=== PATIENT | male | born 1935 | race Caucasian/White ===

== ENCOUNTER 2018-05-01 15:57 | Observation (INO) ==
[2018-05-01] MEDS ORDERED: DIPH/TET/ACEL PERT BOOSTER VACCINE 0.5 ML VIAL IM ONE (20:15)
[2018-05-01] MEDS ORDERED: SODIUM CHLORIDE 0.9% 500 ML IV STA (20:16)
[2018-05-01 20:37] LABS: Basophils # 0.1 10*3/uL (0.0-0.2); Basophils % 0.8 % (0.0-0.8); Eosinophils # 0.1 10*3/uL (0.0-0.87); Eosinophils % 0.5 % (0.00-10.9); Hematocrit 36.9 VOL% (42.0-52.0); Hemoglobin 12.4 GM/DL (14.0-18.0); Immature Granulocytes % 0.7 %; Immature Granulocytes Absolute 0.07 #; Lymphocytes # 3.7 10*3/uL (1.4-4.0); Lymphocytes % 39.1 % (21.2-54.2); Mean Corpuscular HGB Conc 33.6 GM/DL (32-36); Mean Corpuscular Hemoglobin 32 PG (27-34); Mean Corpuscular Volume 96.1 FL (87-102); Mean Platelet Volume 9.1 FL (9.6-12.0); Monocytes # 0.8 10*3/uL (0.11-0.8); Monocytes % 8.5 % (1.7-12.7); Neutrophils # 4.8 10*3/uL (1.4-7.4); Neutrophils % 50.4 % (38.7-73.9); Platelet Count 187 T/CUMM (130-400); Red Blood Count 3.84 MC/CUMM (3.8-5.5); Red Cell Distribution Width 12.9 % (9.3-17.3); White Blood Count 9.5 T/CUMM (4-12)
[2018-05-01 20:46] LABS: PT Patient Result 10.7 SECS
[2018-05-01 20:59] LABS: Alanine Aminotransferase 25 U/L (16-61); Albumin 3.8 G/DL (3.4-5.0); Alkaline Phosphatase 66 U/L (45-117); Aspartate Amino Transferase 17 U/L (0-37); Blood Urea Nitrogen 19 MG/DL (7-18); Calcium 8.5 MG/DL (8.5-10.1); Glucose 121 MG/DL (74-106); Osmolality,Calculated 281.4 MOS/KG (273-304); Potassium 4.9 MMOL/L (3.5-5.1); Sodium 140 MMOL/L (136-145); Total Protein 7.5 G/DL (6.4-8.3)
[2018-05-01 21:19] LABS: Apearance,Urine CLEAR (Clear); Bilirubin,Urine Negative (Negative); Blood, Urine Negative (Negative); Glucose,Urine (UA) Negative (Negative); Ketones,Urine Negative (Negative); Nitrite,Urine Negative (Negative); Protein,Urine Negative; RBC,Urine <1 /HPF (0-4); Urine Color Straw (Yellow); Urine Specific Gravity 1.006 (1.001-1.035); Urine Urobilinogen < 2.0 EU/DL (0.2-1.0); WBC,Urine 1 /HPF (0-6)
[2018-05-01] MEDS ORDERED: ACETAMINOPHEN 325 MG TABLET PO PRN (23:06)
[2018-05-01] MEDS ORDERED: GLUCAGON 1 MG VIAL IM PRN (23:06)
[2018-05-01] MEDS ORDERED: ONDANSETRON 4 MG/2 ML VIAL IV PRN (23:06)
[2018-05-01] MEDS ORDERED: DEXTROSE 50% 25 GM/50 ML VIAL IV PRN (23:06)
[2018-05-02 07:14] LABS: Basophils # 0.1 10*3/uL (0.0-0.2); Basophils % 0.9 % (0.0-0.8); Eosinophils # 0.1 10*3/uL (0.0-0.87); Eosinophils % 1.4 % (0.00-10.9); Hematocrit 36.7 VOL% (42.0-52.0); Hemoglobin 12.6 GM/DL (14.0-18.0); Immature Granulocytes % 0.8 %; Immature Granulocytes Absolute 0.06 #; Lymphocytes # 2.8 10*3/uL (1.4-4.0); Lymphocytes % 35.3 % (21.2-54.2); Mean Corpuscular HGB Conc 34.3 GM/DL (32-36); Mean Corpuscular Hemoglobin 33 PG (27-34); Mean Corpuscular Volume 94.6 FL (87-102); Mean Platelet Volume 9.2 FL (9.6-12.0); Monocytes # 0.7 10*3/uL (0.11-0.8); Monocytes % 8.9 % (1.7-12.7); Neutrophils # 4.2 10*3/uL (1.4-7.4); Neutrophils % 52.7 % (38.7-73.9); Platelet Count 196 T/CUMM (130-400); Red Blood Count 3.88 MC/CUMM (3.8-5.5); Red Cell Distribution Width 12.9 % (9.3-17.3); White Blood Count 7.9 T/CUMM (4-12)
[2018-05-02 07:45] LABS: Folate 12.3 NG/ML (5.4-24.0); Vitamin B12 287 PG/ML (211-911)
[2018-05-02 08:00] LABS: Albumin 3.6 G/DL (3.4-5.0); Bilirubin,Total 0.5 MG/DL (0.2-1.0); Calcium 8.3 MG/DL (8.5-10.1); Potassium 4.3 MMOL/L (3.5-5.1); Risk Ratio 3.81; Total Protein 7.1 G/DL (6.4-8.3); VLDL CHOLESTEROL 25.6 MG/DL
[2018-05-02] MEDS: INSULIN REGULAR 100 UNIT/ML SUBCUT SCH ×4 (08:06→21:21)
[2018-05-02 08:35] LABS: Sedimentation Rate-Westergren 42 MM/HR (0-20)
[2018-05-02] MEDS ORDERED: PANTOPRAZOLE 40 MG TABLET PO ONE (09:02)
[2018-05-02] MEDS ORDERED: ENOXAPARIN 40 MG/0.4 ML SYRINGE ONE (09:02)
[2018-05-02] MEDS ORDERED: ASPIRIN CHEW 81 MG TABLET PO ONE (09:02)
[2018-05-02] MEDS: ASPIRIN EC 81 MG TABLET PO SCH (09:07)
[2018-05-02] MEDS: PANTOPRAZOLE 40 MG TABLET PO SCH (09:07)
[2018-05-02] MEDS: ENOXAPARIN 40 MG/0.4 ML SYRINGE SUBCUT SCH (09:07)
[2018-05-02] MEDS ORDERED: metFORMIN 500 MG TABLET PO SCH (17:00)
[2018-05-03 08:13] VITALS: BP 153/72
[2018-05-03 10:08] LABS: Hemoglobin A1 (Alkaline) 97.3 % (96.5-98.5); Hemoglobin A2 (Alkaline) 2.7 % (1.5-3.5)
[2018-05-03] MEDS: INSULIN REGULAR 100 UNIT/ML SUBCUT SCH (10:34)
[2018-05-03] MEDS: ASPIRIN EC 81 MG TABLET PO SCH (10:34)
[2018-05-03] MEDS: ENOXAPARIN 40 MG/0.4 ML SYRINGE SUBCUT SCH (10:35)
[2018-05-03] MEDS: PANTOPRAZOLE 40 MG TABLET PO SCH (10:35)
== END 2018-05-03 11:45 | disposition home or self-care (01) ==
LOC: N.ED 15:57 → INTOOBSV 21:49 → N.EDINP 21:49 → N.2W 05-02 15:29 → N.TELEN 05-02 17:39
PROVIDERS: ADMIT Internal Medicine; ATTEND Internal Medicine

== ENCOUNTER 2018-05-20 11:04 | Inpatient (IN) ==
[2018-05-20] MEDS ORDERED: ACETAMINOPHEN 325 MG TABLET PO PRN (12:20)
[2018-05-20] MEDS ORDERED: MAGNESIUM SULF RIDER 4 GM in PREMIX 1 EACH IV PRN (12:20)
[2018-05-20] MEDS ORDERED: MAGNESIUM SULF RIDER 2 GM in PREMIX 1 EACH IV PRN (12:20)
[2018-05-20] MEDS ORDERED: ONDANSETRON 4 MG/2 ML VIAL IV PRN (12:20)
[2018-05-20] MEDS ORDERED: ZALEPLON 5 MG CAPSULE PO PRN (12:20)
[2018-05-20] MEDS ORDERED: LACTULOSE 20 GM/30 ML UDCUP PO PRN (12:20)
[2018-05-20 13:35] LABS: Basophils % 0.4 % (0.0-0.8); Eosinophils % 0.2 % (0.00-10.9); Hematocrit 39.8 VOL% (42.0-52.0); Hemoglobin 13.3 GM/DL (14.0-18.0); Immature Granulocytes % 0.4 %; Immature Granulocytes Absolute 0.04 #; Lymphocytes # 1.3 10*3/uL (1.4-4.0); Lymphocytes % 13.8 % (21.2-54.2); Mean Corpuscular HGB Conc 33.4 GM/DL (32-36); Mean Corpuscular Hemoglobin 33 PG (27-34); Mean Corpuscular Volume 97.5 FL (87-102); Mean Platelet Volume 9.2 FL (9.6-12.0); Monocytes # 0.3 10*3/uL (0.11-0.8); Monocytes % 3.7 % (1.7-12.7); Neutrophils # 7.4 10*3/uL (1.4-7.4); Neutrophils % 81.5 % (38.7-73.9); Platelet Count 207 T/CUMM (130-400); Red Blood Count 4.08 MC/CUMM (3.8-5.5); White Blood Count 9.1 T/CUMM (4-12)
[2018-05-20 13:57] LABS: Bilirubin,Total 0.6 MG/DL (0.2-1.0); Calcium 8.8 MG/DL (8.5-10.1); Osmolality,Calculated 283.4 MOS/KG (273-304); Potassium 4.8 MMOL/L (3.5-5.1); Total Protein 8.1 G/DL (6.4-8.3)
[2018-05-20 14:10] LABS: Thyroid Stimulating Hormone 1.79 uIU/ml (0.358-3.74)
[2018-05-20] MEDS ORDERED: GLUCAGON 1 MG VIAL IM PRN (15:11)
[2018-05-20] MEDS ORDERED: DEXTROSE 50% 25 GM/50 ML VIAL IV PRN (15:11)
[2018-05-20 15:38] LABS: Troponin I Only < 0.015 NG/ML (0.00-0.045)
[2018-05-20] MEDS: INSULIN REGULAR 100 UNIT/ML SUBCUT SCH ×2 (17:51→23:10)
[2018-05-20] MEDS ORDERED: LIDOCAINE 1% 20 ML VIAL ONE (18:15)
[2018-05-20] MEDS ORDERED: fentaNYL 100 MCG/2 ML VIAL ONE (18:21)
[2018-05-20] MEDS ORDERED: MIDAZOLAM 2 MG/2 ML VIAL ONE (18:21)
[2018-05-20 20:37] LABS: Troponin I Only < 0.015 NG/ML (0.00-0.045)
[2018-05-21 02:32] LABS: Basophils % 0.3 % (0.0-0.8); Eosinophils % 0.2 % (0.00-10.9); Hematocrit 36.5 VOL% (42.0-52.0); Immature Granulocytes % 0.4 %; Immature Granulocytes Absolute 0.05 #; Lymphocytes % 16.8 % (21.2-54.2); Mean Corpuscular HGB Conc 32.9 GM/DL (32-36); Mean Corpuscular Hemoglobin 32 PG (27-34); Mean Corpuscular Volume 96.1 FL (87-102); Mean Platelet Volume 9.6 FL (9.6-12.0); Monocytes # 0.9 10*3/uL (0.11-0.8); Monocytes % 7.8 % (1.7-12.7); Neutrophils # 8.9 10*3/uL (1.4-7.4); Neutrophils % 74.5 % (38.7-73.9); Platelet Count 220 T/CUMM (130-400); Red Cell Distribution Width 12.9 % (9.3-17.3); White Blood Count 11.9 T/CUMM (4-12)
[2018-05-21 03:03] LABS: Troponin I Only < 0.015 NG/ML (0.00-0.045)
[2018-05-21 03:22] LABS: Albumin 3.3 G/DL (3.4-5.0); Bilirubin,Total 0.4 MG/DL (0.2-1.0); Calcium 8.2 MG/DL (8.5-10.1); Osmolality,Calculated 286.4 MOS/KG (273-304); Potassium 4.3 MMOL/L (3.5-5.1); Total Protein 7.1 G/DL (6.4-8.3)
[2018-05-21 10:01] LABS: Troponin I Only < 0.015 NG/ML (0.00-0.045)
[2018-05-21] MEDS: INSULIN REGULAR 100 UNIT/ML SUBCUT SCH ×3 (13:29→21:32)
[2018-05-21] MEDS ORDERED: GLUCAGON 1 MG VIAL IM PRN (13:46)
[2018-05-21] MEDS: PANTOPRAZOLE 40 MG TABLET PO SCH (15:21)
[2018-05-22] MEDS: INSULIN REGULAR 100 UNIT/ML SUBCUT SCH ×4 (07:50→21:31)
[2018-05-22] MEDS: PANTOPRAZOLE 40 MG TABLET PO SCH (10:48)
[2018-05-22] MEDS ORDERED: ceFAZolin 1,000 MG VIAL IRRIG ONE (11:38)
[2018-05-22] MEDS ORDERED: DIAZEPAM 5 MG TABLET PO ONE (12:00)
[2018-05-22] MEDS ORDERED: diphenhydrAMINE CAP 25 MG CAPSULE PO ONE (12:00)
[2018-05-22] MEDS ORDERED: SODIUM CHLORIDE 0.9% 1,000 ML IV SCH ×2 (12:00)
[2018-05-22] MEDS ORDERED: ceFAZolin 1,000 MG VIAL ONE (12:51)
[2018-05-22] MEDS ORDERED: LIDOCAINE 1% 20 ML VIAL ONE ×2 (12:51→12:54)
[2018-05-22] MEDS ORDERED: fentaNYL 100 MCG/2 ML VIAL ONE (13:05)
[2018-05-22] MEDS ORDERED: MIDAZOLAM 2 MG/2 ML VIAL ONE (13:05)
[2018-05-22] MEDS ORDERED: TISSUE ADHESIVE 1 EACH APPLICATOR TOP ONE (14:11)
[2018-05-22] MEDS ORDERED: ALUMINUM/MAGNES/SIMETH MAX STR 30 ML UDCUP PO PRN (15:09)
[2018-05-22] MEDS ORDERED: ONDANSETRON 4 MG/2 ML VIAL IV PRN (15:09)
[2018-05-22] MEDS ORDERED: diphenhydrAMINE CAP 25 MG CAPSULE PO PRN (17:09)
[2018-05-22] MEDS ORDERED: MAGNESIUM HYDROXIDE SUSP 30 ML UDCUP PO PRN (17:09)
[2018-05-23 05:00] LABS: Basophils # 0.1 10*3/uL (0.0-0.2); Basophils % 0.5 % (0.0-0.8); Eosinophils % 0.4 % (0.00-10.9); Hematocrit 38.8 VOL% (42.0-52.0); Hemoglobin 13.1 GM/DL (14.0-18.0); Immature Granulocytes % 0.6 %; Immature Granulocytes Absolute 0.06 #; Lymphocytes # 2.1 10*3/uL (1.4-4.0); Lymphocytes % 21.1 % (21.2-54.2); Mean Corpuscular HGB Conc 33.8 GM/DL (32-36); Mean Corpuscular Hemoglobin 32 PG (27-34); Mean Corpuscular Volume 94.9 FL (87-102); Mean Platelet Volume 9.7 FL (9.6-12.0); Monocytes # 1.2 10*3/uL (0.11-0.8); Monocytes % 11.9 % (1.7-12.7); Neutrophils # 6.6 10*3/uL (1.4-7.4); Neutrophils % 65.5 % (38.7-73.9); Platelet Count 184 T/CUMM (130-400); Red Blood Count 4.09 MC/CUMM (3.8-5.5); Red Cell Distribution Width 12.7 % (9.3-17.3)
[2018-05-23 05:04] VITALS: BP 160/78
[2018-05-23 05:18] LABS: Calcium 8.6 MG/DL (8.5-10.1); Osmolality,Calculated 281.4 MOS/KG (273-304); Osmolality,Calculated 282.4 MOS/KG (273-304); Potassium 3.9 MMOL/L (3.5-5.1)
[2018-05-23] MEDS: PANTOPRAZOLE 40 MG TABLET PO SCH (08:37)
[2018-05-23] MEDS: INSULIN REGULAR 100 UNIT/ML SUBCUT SCH (08:37)
== END 2018-05-23 11:30 | disposition home or self-care (01) | DRG 242 ==
LOC: INTOOBSV 11:14 → N.TELEN 11:14 → N.CC 15:02 → N.TELEN 05-22 15:08
PROVIDERS: ADMIT Internal Medicine Cardiovascular Disease; ATTEND Internal Medicine Cardiovascular Disease

== ENCOUNTER 2018-12-28 18:43 | Observation (INO) ==
[2018-12-28 19:17] LABS: Basophils # 0.1 10*3/uL (0.0-0.2); Basophils % 0.7 % (0.0-0.8); Eosinophils # 0.2 10*3/uL (0.0-0.87); Eosinophils % 1.8 % (0.00-10.9); Hematocrit 39.1 VOL% (42.0-52.0); Immature Granulocytes % 0.3 %; Immature Granulocytes Absolute 0.03 #; Lymphocytes # 2.6 10*3/uL (1.4-4.0); Mean Corpuscular HGB Conc 33.2 GM/DL (32-36); Mean Corpuscular Hemoglobin 32 PG (27-34); Mean Corpuscular Volume 95.6 FL (87-102); Mean Platelet Volume 9.3 FL (9.6-12.0); Monocytes # 0.9 10*3/uL (0.11-0.8); Monocytes % 8.2 % (1.7-12.7); Neutrophils # 6.7 10*3/uL (1.4-7.4); Platelet Count 211 T/CUMM (130-400); Red Blood Count 4.09 MC/CUMM (3.8-5.5); Red Cell Distribution Width 12.7 % (9.3-17.3); White Blood Count 10.5 T/CUMM (4-12)
[2018-12-28 19:35] LABS: Albumin 3.8 G/DL (3.4-5.0); Bilirubin,Total 0.5 MG/DL (0.2-1.0); Calcium 8.8 MG/DL (8.5-10.1); Potassium 4.2 MMOL/L (3.5-5.1); Total Protein 7.8 G/DL (6.4-8.3)
[2018-12-28] MEDS ORDERED: SODIUM CHLORIDE 0.9% 1,000 ML IV STA (20:00)
[2018-12-28] MEDS ORDERED: GLUCAGON 1 MG VIAL IM PRN (21:07)
[2018-12-28] MEDS ORDERED: ACETAMINOPHEN 325 MG TABLET PO PRN (21:07)
[2018-12-28] MEDS ORDERED: ONDANSETRON 4 MG/2 ML VIAL IV PRN (21:07)
[2018-12-28] MEDS ORDERED: DEXTROSE 50% 25 GM/50 ML VIAL IV PRN (21:07)
[2018-12-28] MEDS ORDERED: ENOXAPARIN 40 MG/0.4 ML SYRINGE SUBCUT SCH (21:30)
[2018-12-28] MEDS ORDERED: amLODIPine 5 MG TABLET PO ONE (22:21)
[2018-12-28] MEDS: SODIUM CHLORIDE 0.9% 1,000 ML IV SCH (22:52)
[2018-12-29 04:38] LABS: Basophils % 0.4 % (0.0-0.8); Eosinophils # 0.1 10*3/uL (0.0-0.87); Eosinophils % 0.9 % (0.00-10.9); Hematocrit 35.6 VOL% (42.0-52.0); Hemoglobin 11.6 GM/DL (14.0-18.0); Immature Granulocytes % 0.3 %; Immature Granulocytes Absolute 0.03 #; Lymphocytes # 2.7 10*3/uL (1.4-4.0); Lymphocytes % 25.9 % (21.2-54.2); Mean Corpuscular HGB Conc 32.6 GM/DL (32-36); Mean Corpuscular Hemoglobin 32 PG (27-34); Mean Platelet Volume 9.7 FL (9.6-12.0); Monocytes # 0.9 10*3/uL (0.11-0.8); Monocytes % 8.6 % (1.7-12.7); Neutrophils # 6.7 10*3/uL (1.4-7.4); Neutrophils % 63.9 % (38.7-73.9); Platelet Count 182 T/CUMM (130-400); Red Blood Count 3.67 MC/CUMM (3.8-5.5); Red Cell Distribution Width 12.6 % (9.3-17.3); White Blood Count 10.4 T/CUMM (4-12)
[2018-12-29 04:51] LABS: Osmolality,Calculated 288.8 MOS/KG (273-304); Potassium 4.1 MMOL/L (3.5-5.1)
[2018-12-29] MEDS: SODIUM CHLORIDE 0.9% 1,000 ML IV SCH (05:25)
[2018-12-29] MEDS ORDERED: INSULIN REGULAR 100 UNIT/ML SUBCUT SCH (07:30)
[2018-12-29 08:07] VITALS: BP 147/68
[2018-12-29] MEDS ORDERED: PANTOPRAZOLE 40 MG TABLET PO SCH (09:00)
== END 2018-12-29 10:23 | disposition home or self-care (01) ==
LOC: N.ED 18:43 → N.EDINP 18:43 → N.TELEN 21:34
PROVIDERS: ADMIT Internal Medicine; ATTEND Internal Medicine

== ENCOUNTER 2022-09-11 15:17 | Inpatient (IN) ==
[2022-09-11] MEDS ORDERED: diphenhydrAMINE 50 MG/1 ML VIAL ONE (15:52)
[2022-09-11] MEDS ORDERED: methylPREDNISolone SOD SUC 125 MG/2 ML VIAL ONE (15:52)
[2022-09-11] MEDS ORDERED: FAMOTIDINE 20 MG/2 ML VIAL IV ONE (15:56)
[2022-09-11] MEDS ORDERED: diphenhydrAMINE 50 MG/1 ML VIAL IV STA ×2 (15:57→16:50)
[2022-09-11] MEDS ORDERED: methylPREDNISolone SOD SUC 125 MG/2 ML VIAL IV STA (15:57)
[2022-09-11] MEDS ORDERED: FAMOTIDINE 20 MG/2 ML VIAL IV STA (15:57)
[2022-09-11] MEDS ORDERED: SODIUM CHLORIDE 0.9% 1,000 ML IV STA (15:57)
[2022-09-11 16:16] LABS: Basophils # 0.1 10*3/uL (0.0-0.2); Basophils % 0.2 % (0.0-0.8); Eosinophils % 0.1 % (0.00-10.9); Hematocrit 45.2 VOL% (42.0-52.0); Hemoglobin 15.1 GM/DL (14.0-18.0); Immature Granulocytes Absolute 0.29 #; Lymphocytes # 1.4 10*3/uL (1.4-4.0); Lymphocytes % 4.6 % (21.2-54.2); Mean Corpuscular HGB Conc 33.4 GM/DL (32-36); Mean Corpuscular Volume 97.4 FL (87-102); Mean Platelet Volume 9.8 FL (9.6-12.0); Monocytes # 2.4 10*3/uL (0.11-0.8); Neutrophils % 86.1 % (38.7-73.9); Platelet Count 254 T/CUMM (130-400); Red Blood Count 4.64 MC/CUMM (3.8-5.5); White Blood Count 30.4 T/CUMM (4-12)
[2022-09-11 16:39] LABS: Albumin 4.1 G/DL (3.4-5.0); Bilirubin,Total 1.6 MG/DL (0.20-1.00); Calcium 9.3 MG/DL (8.5-10.1); Osmolality,Calculated 295.4 MOS/KG (273-304); Potassium 4.1 MMOL/L (3.5-5.1); Total Protein 7.8 G/DL (6.4-8.2)
[2022-09-11 16:40] LABS: Lymphocytes 5 % (20-55)
[2022-09-11 16:41] LABS: Platelet Estimate Normal; Total Cells Counted 100
[2022-09-11] MEDS ORDERED: ASPIRIN 325 MG TABLET ONE (16:50)
[2022-09-11] MEDS ORDERED: ASPIRIN 325 MG TABLET PO STA (16:50)
[2022-09-11] MEDS ORDERED: hydrALAZINE 20 MG/1 ML VIAL IV STA (16:58)
[2022-09-11] MEDS ORDERED: ONDANSETRON 4 MG/2 ML VIAL IV PRN (18:16)
[2022-09-11] MEDS ORDERED: ACETAMINOPHEN 325 MG TABLET PO PRN (18:16)
[2022-09-11] MEDS ORDERED: hydrALAZINE 20 MG/1 ML VIAL IV PRN (18:26)
[2022-09-11] MEDS ORDERED: CLOPIDOGREL 300 MG TABLET PO ONE (18:28)
[2022-09-11] MEDS ORDERED: NITROGLYCERIN SL 0.4 MG TABLET SL PRN (18:29)
[2022-09-11] MEDS ORDERED: GLUCAGON 1 MG VIAL IM PRN (18:32)
[2022-09-11] MEDS ORDERED: DEXTROSE 10% 250 ML BAG IV PRN (18:38)
[2022-09-11] MEDS ORDERED: FAMOTIDINE INJ 40 MG in SODIUM CHLORIDE 0.9% 100 ML IV SCH (19:00)
[2022-09-11] MEDS: methylPREDNISolone SOD SUC 40 MG/1 ML VIAL IV SCH (19:45)
[2022-09-11] MEDS: SODIUM CHLORIDE 0.9% 1,000 ML IV SCH (19:45)
[2022-09-11 19:47] LABS: Amorphous Crystals,Urine Occasional /HPF (Few); Bacteria,Urine Occasional /HPF (Few); Bilirubin,Urine Negative (Negative); Blood, Urine Large mg/dL (Negative); Glucose,Urine (UA) 150 mg/dL (Negative); Ketones,Urine 5 mg/dL (Negative); Mucus,Urine Occasional /LPF (Occasional); Nitrite,Urine Negative (Negative); Protein,Urine Negative (Negative); RBC,Urine 1 /HPF (0-4); Squamous Epithelial Cell,Urine Occasional /HPF (0-10); Urine Appearance CLEAR (Clear); Urine Color Straw (Yellow); Urine Specific Gravity 1.008 (1.001-1.035); Urine Urobilinogen < 2.0 eU/dL (<2.0)
[2022-09-11] MEDS: METOPROLOL TARTRATE 25 MG TABLET PO SCH ×2 (19:50→23:26)
[2022-09-11] MEDS: diphenhydrAMINE CAP 25 MG CAPSULE PO SCH (19:50)
[2022-09-11] MEDS: ISOSORBIDE DINITRATE 20 MG TABLET PO SCH ×2 (19:50→21:19)
[2022-09-11] MEDS ORDERED: ENOXAPARIN 80 MG/0.8 ML SYRINGE SUBCUT ONE (20:14)
[2022-09-11] MEDS ORDERED: ENOXAPARIN 100 MG/ML SYRINGE SUBCUT STA (20:17)
[2022-09-11] MEDS ORDERED: ENOXAPARIN 40 MG/0.4 ML SYRINGE SUBCUT ONE (20:30)
[2022-09-11] MEDS ORDERED: MORPHINE 2 MG/1 ML SYRINGE IV PRN (22:03)
[2022-09-11] MEDS ORDERED: PROMETHAZINE 25 MG/1 ML VIAL IM STA (23:04)
[2022-09-11] MEDS ORDERED: PROMETHAZINE 25 MG/1 ML VIAL ONE (23:05)
[2022-09-11] MEDS: ENOXAPARIN 40 MG/0.4 ML SYRINGE SUBCUT SCH (23:26)
[2022-09-12] MEDS ORDERED: QUEtiapine 25 MG TABLET PO ONE (00:01)
[2022-09-12] MEDS ORDERED: QUEtiapine 100 MG TABLET PO ONE (00:30)
[2022-09-12] MEDS ORDERED: HALOPERIDOL 5 MG/ML AMP IM STA (01:32)
[2022-09-12] MEDS: INSULIN LISPRO 100 UNIT/ML SUBCUT SCH ×5 (03:03→21:12)
[2022-09-12] MEDS: ATORVASTATIN 20 MG TABLET PO SCH ×2 (03:04→21:11)
[2022-09-12] MEDS: methylPREDNISolone SOD SUC 40 MG/1 ML VIAL IV SCH ×2 (04:29→10:04)
[2022-09-12] MEDS: SODIUM CHLORIDE 0.9% 1,000 ML IV SCH (04:29)
[2022-09-12] MEDS: diphenhydrAMINE CAP 25 MG CAPSULE PO SCH ×2 (04:47→10:04)
[2022-09-12 05:29] LABS: Basophils % 0.1 % (0.0-0.8); Hematocrit 37.4 VOL% (42.0-52.0); Hemoglobin 12.6 GM/DL (14.0-18.0); Immature Granulocytes % 0.9 %; Immature Granulocytes Absolute 0.15 #; Lymphocytes # 0.7 10*3/uL (1.4-4.0); Lymphocytes % 3.9 % (21.2-54.2); Mean Corpuscular HGB Conc 33.7 GM/DL (32-36); Mean Corpuscular Volume 95.2 FL (87-102); Monocytes # 0.4 10*3/uL (0.11-0.8); Monocytes % 2.4 % (1.7-12.7); Neutrophils % 92.7 % (38.7-73.9); Platelet Count 196 T/CUMM (130-400); Red Blood Count 3.93 MC/CUMM (3.8-5.5); Red Cell Distribution Width 12.8 % (9.3-17.3)
[2022-09-12 05:51] LABS: Albumin 3.5 G/DL (3.4-5.0); Bilirubin,Total 1.5 MG/DL (0.20-1.00); Calcium 8.7 MG/DL (8.5-10.1); Potassium 4.4 MMOL/L (3.5-5.1); Risk Ratio 1.82; Thyroid Stimulating Hormone 1.29 uIU/ml (0.358-3.74); VLDL Cholesterol 6.2 MG/DL
[2022-09-12 06:32] LABS: Anisocytosis 1+; Band Neutrophils 4 % (0-10); Burr Cells Few; Lymphocytes 1 % (20-55); Platelet Estimate Normal; Total Cells Counted 100
[2022-09-12] MEDS ORDERED: ASPIRIN 325 MG TABLET PO SCH (09:00)
[2022-09-12] MEDS: ISOSORBIDE DINITRATE 20 MG TABLET PO SCH ×2 (10:04→21:11)
[2022-09-12] MEDS: METOPROLOL TARTRATE 25 MG TABLET PO SCH ×2 (10:04→21:11)
[2022-09-12] MEDS: FAMOTIDINE 20 MG/2 ML VIAL IV SCH (17:04)
[2022-09-12] MEDS: ENOXAPARIN 40 MG/0.4 ML SYRINGE SUBCUT SCH (21:12)
[2022-09-12] MEDS ORDERED: methylPREDNISolone SOD SUC 40 MG/1 ML VIAL IV SCH (23:00)
[2022-09-13 04:29] LABS: Basophils % 0.1 % (0.0-0.8); Hemoglobin 12.4 GM/DL (14.0-18.0); Immature Granulocytes % 0.9 %; Immature Granulocytes Absolute 0.22 #; Lymphocytes # 0.7 10*3/uL (1.4-4.0); Lymphocytes % 2.7 % (21.2-54.2); Mean Corpuscular HGB Conc 32.6 GM/DL (32-36); Mean Corpuscular Volume 98.7 FL (87-102); Mean Platelet Volume 11.4 FL (9.6-12.0); Monocytes # 0.9 10*3/uL (0.11-0.8); Monocytes % 3.4 % (1.7-12.7); Neutrophils % 92.9 % (38.7-73.9); Platelet Count 65 T/CUMM (130-400); Red Blood Count 3.85 MC/CUMM (3.8-5.5); Red Cell Distribution Width 13.3 % (9.3-17.3); White Blood Count 24.8 T/CUMM (4-12)
[2022-09-13 05:02] LABS: Calcium 8.8 MG/DL (8.5-10.1); Osmolality,Calculated 292.1 MOS/KG (273-304); Potassium 5.3 MMOL/L (3.5-5.1)
[2022-09-13 05:32] LABS: Band Neutrophils 1 % (0-10); Lymphocytes 1 % (20-55)
[2022-09-13 05:34] LABS: Total Cells Counted 100
[2022-09-13 05:35] LABS: Microcytosis Slight; Ovalocytes Slight
[2022-09-13] MEDS ORDERED: metFORMIN 500 MG TABLET PO SCH (08:00)
[2022-09-13] MEDS: METOPROLOL TARTRATE 25 MG TABLET PO SCH (08:53)
[2022-09-13] MEDS: ASPIRIN EC 81 MG TABLET PO SCH (08:54)
[2022-09-13] MEDS: ISOSORBIDE DINITRATE 20 MG TABLET PO SCH ×2 (08:54→20:53)
[2022-09-13 08:55] LABS: Basophils % 0.1 % (0.0-0.8); Hematocrit 36.8 VOL% (42.0-52.0); Hemoglobin 12.4 GM/DL (14.0-18.0); Immature Granulocytes Absolute 0.23 #; Lymphocytes # 0.9 10*3/uL (1.4-4.0); Lymphocytes % 3.8 % (21.2-54.2); Mean Corpuscular HGB Conc 33.7 GM/DL (32-36); Mean Corpuscular Volume 95.6 FL (87-102); Mean Platelet Volume 9.6 FL (9.6-12.0); Monocytes # 1.6 10*3/uL (0.11-0.8); Monocytes % 6.8 % (1.7-12.7); Neutrophils % 88.3 % (38.7-73.9); Platelet Count 186 T/CUMM (130-400); Red Blood Count 3.85 MC/CUMM (3.8-5.5); Red Cell Distribution Width 13.4 % (9.3-17.3)
[2022-09-13] MEDS: INSULIN LISPRO 100 UNIT/ML SUBCUT SCH ×4 (09:01→20:53)
[2022-09-13 09:13] LABS: Calcium 8.9 MG/DL (8.5-10.1); Osmolality,Calculated 296.7 MOS/KG (273-304); Potassium 4.3 MMOL/L (3.5-5.1)
[2022-09-13 09:27] LABS: Lymphocytes 5 % (20-55); Platelet Estimate Adequate; Total Cells Counted 100
[2022-09-13] MEDS: predniSONE 10 MG TABLET PO SCH ×2 (11:55→20:53)
[2022-09-13] MEDS: CETIRIZINE 10 MG TABLET PO SCH (11:55)
[2022-09-13] MEDS: FAMOTIDINE 20 MG/2 ML VIAL IV SCH (17:44)
[2022-09-13] MEDS: ENOXAPARIN 40 MG/0.4 ML SYRINGE SUBCUT SCH (20:53)
[2022-09-13] MEDS: METOPROLOL TARTRATE 50 MG TABLET PO SCH (20:53)
[2022-09-13] MEDS: ATORVASTATIN 20 MG TABLET PO SCH (20:53)
[2022-09-14 06:06] LABS: Basophils % 0.1 % (0.0-0.8); Hematocrit 37.5 VOL% (42.0-52.0); Hemoglobin 12.5 GM/DL (14.0-18.0); Immature Granulocytes % 0.7 %; Immature Granulocytes Absolute 0.15 #; Lymphocytes # 1.7 10*3/uL (1.4-4.0); Lymphocytes % 7.7 % (21.2-54.2); Mean Corpuscular HGB Conc 33.3 GM/DL (32-36); Mean Corpuscular Volume 96.4 FL (87-102); Mean Platelet Volume 10.4 FL (9.6-12.0); Monocytes # 1.7 10*3/uL (0.11-0.8); Monocytes % 7.9 % (1.7-12.7); Neutrophils % 83.6 % (38.7-73.9); Platelet Count 186 T/CUMM (130-400); Red Blood Count 3.89 MC/CUMM (3.8-5.5); Red Cell Distribution Width 13.2 % (9.3-17.3); White Blood Count 21.5 T/CUMM (4-12)
[2022-09-14 06:27] LABS: Lymphocytes 3 % (20-55); Platelet Estimate Adequate; Total Cells Counted 100
[2022-09-14 06:31] LABS: Calcium 9.1 MG/DL (8.5-10.1); Osmolality,Calculated 291.1 MOS/KG (273-304); Potassium 3.9 MMOL/L (3.5-5.1)
[2022-09-14] MEDS: INSULIN LISPRO 100 UNIT/ML SUBCUT SCH ×4 (08:47→21:30)
[2022-09-14] MEDS: ISOSORBIDE DINITRATE 20 MG TABLET PO SCH ×2 (09:57→21:41)
[2022-09-14] MEDS: METOPROLOL TARTRATE 50 MG TABLET PO SCH ×2 (09:57→21:42)
[2022-09-14] MEDS: ASPIRIN EC 81 MG TABLET PO SCH (09:57)
[2022-09-14] MEDS: CETIRIZINE 10 MG TABLET PO SCH (09:58)
[2022-09-14] MEDS: predniSONE 10 MG TABLET PO SCH ×2 (09:58→21:40)
[2022-09-14] MEDS: OLANZapine 5 MG TABLET PO SCH ×2 (12:01→12:22)
[2022-09-14] MEDS: LACTATED RINGERS 1,000 ML IV SCH ×2 (12:22→21:42)
[2022-09-14] MEDS: FAMOTIDINE 20 MG/2 ML VIAL IV SCH (16:41)
[2022-09-14 19:17] LABS: Bacteria,Urine Occasional /HPF (Few); Bilirubin,Urine Negative (Negative); Blood, Urine Small mg/dL (Negative); Glucose,Urine (UA) 50 mg/dL (Negative); Hyaline Casts,Urine 3 /LPF (0-3); Ketones,Urine Negative (Negative); Mucus,Urine Occasional /LPF (Occasional); Nitrite,Urine Negative (Negative); Protein,Urine Negative (Negative); RBC,Urine <1 /HPF (0-4); Urine Appearance CLEAR (Clear); Urine Color Yellow (Yellow); Urine Specific Gravity 1.019 (1.001-1.035); Urine Urobilinogen < 2.0 eU/dL (<2.0)
[2022-09-14] MEDS: ATORVASTATIN 20 MG TABLET PO SCH (21:40)
[2022-09-14] MEDS: ENOXAPARIN 40 MG/0.4 ML SYRINGE SUBCUT SCH (21:41)
[2022-09-15 05:34] LABS: Basophils % 0.1 % (0.0-0.8); Eosinophils % 0.1 % (0.00-10.9); Hematocrit 37.8 VOL% (42.0-52.0); Hemoglobin 12.6 GM/DL (14.0-18.0); Immature Granulocytes % 0.8 %; Immature Granulocytes Absolute 0.12 #; Lymphocytes # 1.1 10*3/uL (1.4-4.0); Mean Corpuscular HGB Conc 33.3 GM/DL (32-36); Mean Corpuscular Volume 96.2 FL (87-102); Mean Platelet Volume 10.3 FL (9.6-12.0); Monocytes % 6.4 % (1.7-12.7); Neutrophils % 85.6 % (38.7-73.9); Platelet Count 174 T/CUMM (130-400); Red Blood Count 3.93 MC/CUMM (3.8-5.5); White Blood Count 15.3 T/CUMM (4-12)
[2022-09-15 05:58] LABS: Calcium 8.8 MG/DL (8.5-10.1); Osmolality,Calculated 290.1 MOS/KG (273-304)
[2022-09-15] MEDS: INSULIN LISPRO 100 UNIT/ML SUBCUT SCH ×4 (07:30→20:43)
[2022-09-15] MEDS: predniSONE 10 MG TABLET PO SCH ×2 (09:00→09:58)
[2022-09-15] MEDS: ASPIRIN EC 81 MG TABLET PO SCH (09:58)
[2022-09-15] MEDS: OLANZapine 5 MG TABLET PO SCH (09:58)
[2022-09-15] MEDS: ISOSORBIDE DINITRATE 20 MG TABLET PO SCH ×2 (09:59→20:43)
[2022-09-15] MEDS: LACTATED RINGERS 1,000 ML IV SCH ×2 (09:59→17:05)
[2022-09-15] MEDS: METOPROLOL TARTRATE 50 MG TABLET PO SCH ×2 (09:59→20:43)
[2022-09-15] MEDS: CETIRIZINE 10 MG TABLET PO SCH (09:59)
[2022-09-15] MEDS: amLODIPine 5 MG TABLET PO SCH (16:57)
[2022-09-15] MEDS: FAMOTIDINE 20 MG/2 ML VIAL IV SCH (16:58)
[2022-09-15] MEDS: ATORVASTATIN 20 MG TABLET PO SCH (20:43)
[2022-09-15] MEDS: ENOXAPARIN 40 MG/0.4 ML SYRINGE SUBCUT SCH (20:43)
[2022-09-15] MEDS ORDERED: LORazepam 2 MG/1 ML VIAL IV ONE (22:18)
[2022-09-16] MEDS: LACTATED RINGERS 1,000 ML IV SCH ×2 (04:13→15:50)
[2022-09-16 05:25] LABS: Basophils % 0.2 % (0.0-0.8); Eosinophils # 0.4 10*3/uL (0.0-0.87); Eosinophils % 2.4 % (0.00-10.9); Hematocrit 37.7 VOL% (42.0-52.0); Hemoglobin 12.7 GM/DL (14.0-18.0); Immature Granulocytes % 0.8 %; Immature Granulocytes Absolute 0.13 #; Lymphocytes # 3.3 10*3/uL (1.4-4.0); Lymphocytes % 20.9 % (21.2-54.2); Mean Corpuscular HGB Conc 33.7 GM/DL (32-36); Mean Corpuscular Volume 95.9 FL (87-102); Mean Platelet Volume 10.2 FL (9.6-12.0); Monocytes # 1.5 10*3/uL (0.11-0.8); Monocytes % 9.4 % (1.7-12.7); Neutrophils % 66.3 % (38.7-73.9); Platelet Count 182 T/CUMM (130-400); Red Blood Count 3.93 MC/CUMM (3.8-5.5); Red Cell Distribution Width 12.9 % (9.3-17.3); White Blood Count 15.7 T/CUMM (4-12)
[2022-09-16 05:45] LABS: Calcium 8.4 MG/DL (8.5-10.1); Osmolality,Calculated 292.7 MOS/KG (273-304); Potassium 3.6 MMOL/L (3.5-5.1)
[2022-09-16] MEDS: INSULIN LISPRO 100 UNIT/ML SUBCUT SCH ×4 (08:16→21:55)
[2022-09-16] MEDS ORDERED: predniSONE 5 MG TABLET PO ONE (09:37)
[2022-09-16] MEDS: ASPIRIN EC 81 MG TABLET PO SCH (12:35)
[2022-09-16] MEDS: METOPROLOL TARTRATE 50 MG TABLET PO SCH ×2 (12:35→20:50)
[2022-09-16] MEDS: ISOSORBIDE DINITRATE 20 MG TABLET PO SCH ×2 (12:36→20:50)
[2022-09-16] MEDS: OLANZapine 5 MG TABLET PO SCH (12:36)
[2022-09-16] MEDS: CETIRIZINE 10 MG TABLET PO SCH (12:36)
[2022-09-16] MEDS: predniSONE 10 MG TABLET PO SCH (12:40)
[2022-09-16] MEDS: amLODIPine 5 MG TABLET PO SCH (12:40)
[2022-09-16] MEDS: FAMOTIDINE 20 MG/2 ML VIAL IV SCH (16:25)
[2022-09-16] MEDS: ENOXAPARIN 40 MG/0.4 ML SYRINGE SUBCUT SCH (20:50)
[2022-09-16] MEDS: ATORVASTATIN 20 MG TABLET PO SCH (20:53)
[2022-09-17] MEDS: LACTATED RINGERS 1,000 ML IV SCH ×3 (02:31→12:07)
[2022-09-17 05:58] LABS: Basophils % 0.2 % (0.0-0.8); Eosinophils # 0.3 10*3/uL (0.0-0.87); Eosinophils % 1.3 % (0.00-10.9); Hematocrit 41.8 VOL% (42.0-52.0); Immature Granulocytes % 0.8 %; Immature Granulocytes Absolute 0.15 #; Lymphocytes # 1.9 10*3/uL (1.4-4.0); Lymphocytes % 9.6 % (21.2-54.2); Mean Corpuscular HGB Conc 33.5 GM/DL (32-36); Mean Corpuscular Volume 95.4 FL (87-102); Mean Platelet Volume 10.3 FL (9.6-12.0); Monocytes # 1.9 10*3/uL (0.11-0.8); Monocytes % 9.5 % (1.7-12.7); Neutrophils % 78.6 % (38.7-73.9); Platelet Count 210 T/CUMM (130-400); Red Blood Count 4.38 MC/CUMM (3.8-5.5); Red Cell Distribution Width 12.8 % (9.3-17.3); White Blood Count 19.4 T/CUMM (4-12)
[2022-09-17 06:22] LABS: Albumin 3.2 G/DL (3.4-5.0); Bilirubin,Total 0.9 MG/DL (0.20-1.00); Calcium 8.9 MG/DL (8.5-10.1); Osmolality,Calculated 282.3 MOS/KG (273-304); Potassium 3.5 MMOL/L (3.5-5.1); Total Protein 7.1 G/DL (6.4-8.2)
[2022-09-17] MEDS: INSULIN LISPRO 100 UNIT/ML SUBCUT SCH ×4 (08:07→21:17)
[2022-09-17] MEDS: METOPROLOL TARTRATE 50 MG TABLET PO SCH ×2 (08:39→20:53)
[2022-09-17] MEDS: OLANZapine 5 MG TABLET PO SCH (08:39)
[2022-09-17] MEDS: CETIRIZINE 10 MG TABLET PO SCH (08:39)
[2022-09-17] MEDS: DOCUSATE SODIUM 100 MG CAPSULE PO PRN (08:39)
[2022-09-17] MEDS: ASPIRIN EC 81 MG TABLET PO SCH (08:39)
[2022-09-17] MEDS: amLODIPine 10 MG TABLET PO SCH (08:40)
[2022-09-17] MEDS: ISOSORBIDE DINITRATE 20 MG TABLET PO SCH ×2 (08:40→20:54)
[2022-09-17] MEDS ORDERED: predniSONE 5 MG TABLET PO SCH (09:00)
[2022-09-17] MEDS ORDERED: LORazepam 1 MG TABLET PO ONE (12:00)
[2022-09-17] MEDS: ENOXAPARIN 40 MG/0.4 ML SYRINGE SUBCUT SCH (20:54)
[2022-09-18] MEDS: LACTATED RINGERS 1,000 ML IV SCH ×3 (01:19→15:39)
[2022-09-18 05:44] LABS: Basophils # 0.1 10*3/uL (0.0-0.2); Basophils % 0.2 % (0.0-0.8); Eosinophils # 0.2 10*3/uL (0.0-0.87); Hematocrit 40.2 VOL% (42.0-52.0); Hemoglobin 13.6 GM/DL (14.0-18.0); Immature Granulocytes % 1.1 %; Immature Granulocytes Absolute 0.25 #; Lymphocytes # 2.2 10*3/uL (1.4-4.0); Lymphocytes % 9.8 % (21.2-54.2); Mean Corpuscular HGB Conc 33.8 GM/DL (32-36); Mean Corpuscular Volume 95.5 FL (87-102); Mean Platelet Volume 9.7 FL (9.6-12.0); Monocytes # 2.1 10*3/uL (0.11-0.8); Monocytes % 9.4 % (1.7-12.7); Neutrophils % 78.5 % (38.7-73.9); Platelet Count 203 T/CUMM (130-400); Red Blood Count 4.21 MC/CUMM (3.8-5.5); Red Cell Distribution Width 13.1 % (9.3-17.3); White Blood Count 22.5 T/CUMM (4-12)
[2022-09-18 06:23] LABS: Calcium 8.3 MG/DL (8.5-10.1); Osmolality,Calculated 286.1 MOS/KG (273-304); Potassium 3.8 MMOL/L (3.5-5.1)
[2022-09-18] MEDS: INSULIN LISPRO 100 UNIT/ML SUBCUT SCH ×4 (07:25→21:36)
[2022-09-18 07:35] LABS: Eosinophils 1 % (0-10); Lymphocytes 7 % (20-55); Total Cells Counted 100
[2022-09-18 07:36] LABS: Platelet Estimate Normal
[2022-09-18] MEDS ORDERED: MAGNESIUM SULF RIDER 2 GM/50 ML PREMIX IV ONE (08:11)
[2022-09-18] MEDS: OLANZapine 5 MG TABLET PO SCH (09:02)
[2022-09-18] MEDS: PANTOPRAZOLE 40 MG TABLET PO SCH (09:02)
[2022-09-18] MEDS: ISOSORBIDE DINITRATE 20 MG TABLET PO SCH ×2 (09:02→21:38)
[2022-09-18] MEDS: CETIRIZINE 10 MG TABLET PO SCH (09:03)
[2022-09-18] MEDS: amLODIPine 10 MG TABLET PO SCH (09:03)
[2022-09-18] MEDS: METOPROLOL TARTRATE 50 MG TABLET PO SCH ×2 (09:03→21:37)
[2022-09-18] MEDS: ASPIRIN EC 81 MG TABLET PO SCH (09:03)
[2022-09-18] MEDS: cefTRIAXone 2,000 MG in SODIUM CHLORIDE 0.9% 100 ML IV SCH (09:37)
[2022-09-18 13:33] LABS: Bacteria,Urine Many /HPF (Few); Bilirubin,Urine Negative (Negative); Blood, Urine Moderate mg/dL (Negative); Glucose,Urine (UA) Negative (Negative); Hyaline Casts,Urine 1 /LPF (0-3); Ketones,Urine Negative (Negative); Mucus,Urine Occasional /LPF (Occasional); Nitrite,Urine Positive (Negative); Protein,Urine 30 mg/dL (Negative); RBC,Urine 4 /HPF (0-4); Squamous Epithelial Cell,Urine Occasional /HPF (0-10); Urine Appearance Slightly Hazy (Clear); Urine Color Yellow (Yellow); Urine Specific Gravity 1.013 (1.001-1.035); Urine Urobilinogen < 2.0 eU/dL (<2.0)
[2022-09-18] MEDS: ENOXAPARIN 40 MG/0.4 ML SYRINGE SUBCUT SCH (21:37)
[2022-09-18] MEDS: DOCUSATE SODIUM 100 MG CAPSULE PO PRN (21:38)
[2022-09-19] MEDS: LACTATED RINGERS 1,000 ML IV SCH ×3 (01:29→20:29)
[2022-09-19 06:00] LABS: Basophils # 0.1 10*3/uL (0.0-0.2); Basophils % 0.4 % (0.0-0.8); Eosinophils # 0.3 10*3/uL (0.0-0.87); Eosinophils % 2.1 % (0.00-10.9); Hematocrit 38.2 VOL% (42.0-52.0); Hemoglobin 12.7 GM/DL (14.0-18.0); Immature Granulocytes % 2.2 %; Immature Granulocytes Absolute 0.32 #; Lymphocytes # 2.4 10*3/uL (1.4-4.0); Lymphocytes % 16.3 % (21.2-54.2); Mean Corpuscular HGB Conc 33.2 GM/DL (32-36); Mean Corpuscular Volume 97.2 FL (87-102); Mean Platelet Volume 9.8 FL (9.6-12.0); Monocytes # 1.4 10*3/uL (0.11-0.8); Monocytes % 9.5 % (1.7-12.7); Neutrophils % 69.5 % (38.7-73.9); Platelet Count 187 T/CUMM (130-400); Red Blood Count 3.93 MC/CUMM (3.8-5.5); Red Cell Distribution Width 12.9 % (9.3-17.3); White Blood Count 14.5 T/CUMM (4-12)
[2022-09-19 06:17] LABS: Calcium 7.9 MG/DL (8.5-10.1); Osmolality,Calculated 286.1 MOS/KG (273-304); Potassium 4.1 MMOL/L (3.5-5.1)
[2022-09-19] MEDS: INSULIN LISPRO 100 UNIT/ML SUBCUT SCH ×4 (08:07→20:28)
[2022-09-19] MEDS: OLANZapine 5 MG TABLET PO SCH (09:07)
[2022-09-19] MEDS: ASPIRIN EC 81 MG TABLET PO SCH (09:08)
[2022-09-19] MEDS: METOPROLOL TARTRATE 50 MG TABLET PO SCH ×2 (09:08→20:28)
[2022-09-19] MEDS: PANTOPRAZOLE 40 MG TABLET PO SCH (09:08)
[2022-09-19] MEDS: amLODIPine 10 MG TABLET PO SCH (09:08)
[2022-09-19] MEDS: CETIRIZINE 10 MG TABLET PO SCH (09:08)
[2022-09-19] MEDS: ISOSORBIDE DINITRATE 20 MG TABLET PO SCH ×2 (09:08→20:28)
[2022-09-19] MEDS: cefTRIAXone 2,000 MG in SODIUM CHLORIDE 0.9% 100 ML IV SCH (09:09)
[2022-09-19] MEDS: ENOXAPARIN 40 MG/0.4 ML SYRINGE SUBCUT SCH (20:28)
[2022-09-20] MEDS ORDERED: LORazepam 1 MG TABLET PO ONE (01:30)
[2022-09-20 05:36] LABS: Basophils # 0.1 10*3/uL (0.0-0.2); Basophils % 0.6 % (0.0-0.8); Eosinophils # 0.3 10*3/uL (0.0-0.87); Eosinophils % 3.2 % (0.00-10.9); Hematocrit 38.3 VOL% (42.0-52.0); Hemoglobin 12.9 GM/DL (14.0-18.0); Immature Granulocytes % 3.5 %; Immature Granulocytes Absolute 0.34 #; Lymphocytes # 1.8 10*3/uL (1.4-4.0); Lymphocytes % 18.6 % (21.2-54.2); Mean Corpuscular HGB Conc 33.7 GM/DL (32-36); Mean Corpuscular Volume 95.5 FL (87-102); Mean Platelet Volume 9.4 FL (9.6-12.0); Monocytes % 10.9 % (1.7-12.7); Neutrophils % 63.2 % (38.7-73.9); Platelet Count 213 T/CUMM (130-400); Red Blood Count 4.01 MC/CUMM (3.8-5.5); Red Cell Distribution Width 12.7 % (9.3-17.3); White Blood Count 9.6 T/CUMM (4-12)
[2022-09-20 05:53] LABS: Calcium 8.3 MG/DL (8.5-10.1); Osmolality,Calculated 286.1 MOS/KG (273-304)
[2022-09-20] MEDS: INSULIN LISPRO 100 UNIT/ML SUBCUT SCH ×4 (10:22→23:28)
[2022-09-20] MEDS: amLODIPine 10 MG TABLET PO SCH (10:38)
[2022-09-20] MEDS: CETIRIZINE 10 MG TABLET PO SCH (10:39)
[2022-09-20] MEDS: OLANZapine 5 MG TABLET PO SCH (10:39)
[2022-09-20] MEDS: METOPROLOL TARTRATE 50 MG TABLET PO SCH ×2 (10:44→21:54)
[2022-09-20] MEDS: PANTOPRAZOLE 40 MG TABLET PO SCH (10:47)
[2022-09-20] MEDS: ASPIRIN EC 81 MG TABLET PO SCH (10:47)
[2022-09-20] MEDS: ISOSORBIDE DINITRATE 20 MG TABLET PO SCH ×2 (11:26→21:54)
[2022-09-20] MEDS: cefTRIAXone 2,000 MG in SODIUM CHLORIDE 0.9% 100 ML IV SCH (11:31)
[2022-09-20] MEDS: LACTATED RINGERS 1,000 ML IV SCH (11:40)
[2022-09-20] MEDS: ENOXAPARIN 40 MG/0.4 ML SYRINGE SUBCUT SCH (21:54)
[2022-09-21 05:41] LABS: Basophils # 0.1 10*3/uL (0.0-0.2); Basophils % 0.5 % (0.0-0.8); Eosinophils # 0.5 10*3/uL (0.0-0.87); Eosinophils % 4.9 % (0.00-10.9); Hematocrit 38.3 VOL% (42.0-52.0); Hemoglobin 12.6 GM/DL (14.0-18.0); Immature Granulocytes % 3.3 %; Immature Granulocytes Absolute 0.31 #; Lymphocytes # 2.4 10*3/uL (1.4-4.0); Lymphocytes % 25.3 % (21.2-54.2); Mean Corpuscular HGB Conc 32.9 GM/DL (32-36); Mean Corpuscular Volume 96.2 FL (87-102); Mean Platelet Volume 9.4 FL (9.6-12.0); Monocytes # 1.1 10*3/uL (0.11-0.8); Monocytes % 11.3 % (1.7-12.7); Neutrophils % 54.7 % (38.7-73.9); Platelet Count 234 T/CUMM (130-400); Red Blood Count 3.98 MC/CUMM (3.8-5.5); White Blood Count 9.3 T/CUMM (4-12)
[2022-09-21 05:57] LABS: Potassium 3.9 MMOL/L (3.5-5.1)
[2022-09-21] MEDS ORDERED: POTASSIUM CHLORIDE 20 MEQ TABLET PO ONE (06:48)
[2022-09-21] MEDS ORDERED: MAGNESIUM SULF RIDER 2 GM/50 ML PREMIX IV ONE (06:48)
[2022-09-21] MEDS: METOPROLOL TARTRATE 50 MG TABLET PO SCH ×2 (09:25→22:14)
[2022-09-21] MEDS: CETIRIZINE 10 MG TABLET PO SCH (09:25)
[2022-09-21] MEDS: ISOSORBIDE DINITRATE 20 MG TABLET PO SCH ×2 (09:26→22:14)
[2022-09-21] MEDS: amLODIPine 10 MG TABLET PO SCH (09:26)
[2022-09-21] MEDS: ASPIRIN EC 81 MG TABLET PO SCH (09:26)
[2022-09-21] MEDS: OLANZapine 5 MG TABLET PO SCH (09:27)
[2022-09-21] MEDS: PANTOPRAZOLE 40 MG TABLET PO SCH (09:31)
[2022-09-21] MEDS: cefTRIAXone 2,000 MG in SODIUM CHLORIDE 0.9% 100 ML IV SCH (10:30)
[2022-09-21] MEDS: INSULIN LISPRO 100 UNIT/ML SUBCUT SCH ×4 (11:30→21:50)
[2022-09-21] MEDS: ENOXAPARIN 40 MG/0.4 ML SYRINGE SUBCUT SCH (22:13)
[2022-09-22 05:15] LABS: Basophils # 0.1 10*3/uL (0.0-0.2); Basophils % 0.7 % (0.0-0.8); Eosinophils # 0.4 10*3/uL (0.0-0.87); Eosinophils % 4.2 % (0.00-10.9); Hematocrit 40.2 VOL% (42.0-52.0); Hemoglobin 13.3 GM/DL (14.0-18.0); Immature Granulocytes % 2.5 %; Immature Granulocytes Absolute 0.25 #; Lymphocytes # 2.6 10*3/uL (1.4-4.0); Lymphocytes % 25.9 % (21.2-54.2); Mean Corpuscular HGB Conc 33.1 GM/DL (32-36); Mean Corpuscular Volume 96.2 FL (87-102); Mean Platelet Volume 9.1 FL (9.6-12.0); Monocytes % 9.7 % (1.7-12.7); Platelet Count 241 T/CUMM (130-400); Red Blood Count 4.18 MC/CUMM (3.8-5.5); Red Cell Distribution Width 12.9 % (9.3-17.3); White Blood Count 10.1 T/CUMM (4-12)
[2022-09-22 05:34] LABS: Calcium 8.7 MG/DL (8.5-10.1); Osmolality,Calculated 285.3 MOS/KG (273-304); Potassium 4.1 MMOL/L (3.5-5.1)
[2022-09-22] MEDS: INSULIN LISPRO 100 UNIT/ML SUBCUT SCH ×2 (08:54→12:39)
[2022-09-22] MEDS: ASPIRIN EC 81 MG TABLET PO SCH (10:01)
[2022-09-22] MEDS: METOPROLOL TARTRATE 50 MG TABLET PO SCH (10:01)
[2022-09-22] MEDS: CETIRIZINE 10 MG TABLET PO SCH (10:01)
[2022-09-22] MEDS: ISOSORBIDE DINITRATE 20 MG TABLET PO SCH (10:02)
[2022-09-22] MEDS: cefTRIAXone 2,000 MG in SODIUM CHLORIDE 0.9% 100 ML IV SCH (10:02)
[2022-09-22] MEDS: PANTOPRAZOLE 40 MG TABLET PO SCH (10:02)
[2022-09-22] MEDS: amLODIPine 10 MG TABLET PO SCH (10:02)
[2022-09-22 11:44] VITALS: BP 113/67
== END 2022-09-22 15:42 | disposition home health service (06) | DRG 917 ==
LOC: N.ED 15:17 → N.EDINP 18:16 → SUATTDRO 18:16 → N.EDINP 09-12 03:26 → N.TELEN 09-12 03:55
PROVIDERS: ADMIT Internal Medicine; ATTEND Hospitalist